=== PATIENT | male | born 2000 | race Caucasian/White ===

== ENCOUNTER → 2024-08-23 | Outpatient (REF) | payer BC ==
[~2024-08-23] MED LIST: IOPAMIDOL 370 MG/ML 100 ML INFUS..BTL INJ ONE; MINOCYCLINE HCL PO
== END ==
LOC: US 07:27
PROVIDERS: ATTEND Anesthesiology
DX: I70.1 Atherosclerosis of renal artery (principal)
CPT/HCPCS: 74175; 76770; 82384; 83835; 93976; Q9967